=== PATIENT | male | born 1980 | race African-American/Black ===

== ENCOUNTER 2024-06-29 21:19 | Emergency (ER) | payer BC ==
[~2024-06-29] VITALS: Ht 172.7 cm; Wt 87.0 kg
[2024-06-29 21:29] VITALS: TEMP 98; O2SAT 100
[2024-06-30] MEDS ORDERED: CYCL10TA21 MT (03:32)
[2024-06-30] MEDS ORDERED: NAPR-1176 MT (03:32)
[2024-06-30 03:46] VITALS: O2SAT 100
[2024-06-30 03:48] VITALS: BP 120/85; PULSE 62; RESP 16
[2024-06-30] MEDS: KETOROLAC 30MG/ML VIAL IM ONE (03:48)
[2024-06-30] MEDS: CYCLOBENZAPRINE 10MG TABLET PO ONE (03:49)
== END 2024-06-30 03:55 | disposition home or self-care (01) ==
LOC: ER 21:19
DX: S10.93XA Contusion of unspecified part of neck, initial encounter (principal); M54.6 Pain in thoracic spine; W01.0XXA Fall on same level from slipping, tripping and stumbling without subsequent striking against object, initial encounter; Y93.89 Activity, other specified; Y92.89 Other specified places as the place of occurrence of the external cause; Y99.8 Other external cause status
CPT/HCPCS: 71045; 96372; 99285

== ENCOUNTER 2024-11-29 02:18 | Inpatient (IN) | payer BC ==
[~2024-11-29] VITALS: Ht 170.2 cm; Wt 84.8 kg
[~2024-11-29 02:18] MED LIST: CYCL10TA21 MT; NAPR-1176 MT
[2024-11-29 02:46] VITALS: O2SAT 98
[2024-11-29] MEDS ORDERED: CLINDAMYCIN 600 MG in DEXTROSE 5% WATER 50 ML IV ONE (03:45)
[2024-11-29 03:56] LABS: BASOPHILS % 0.4 % (0.0-2.0); EOSINOPHILS % 3.6 % (0.0-5.0); HEMATOCRIT. 35.3 % (42.0-52.0); HEMOGLOBIN. 12.2 g/dL (14.0-18.0); LYMPHOCYTES % 44.5 % (20.0-50.0); MEAN CORPUSCULAR HEMOGLOBIN 29.1 pg (28.0-32.0); MEAN CORPUSCULAR HGB CONC 34.6 g/dL (31.0-37.0); MEAN CORPUSCULAR VOLUME 84.1 fL (80.0-94.0); MEAN PLATELET VOLUME 8.3 fl (7.4-10.4); MONOCYTES % 13.5 % (2.0-8.0); PLATELET 253 x1000/uL (130-400); RED BLOOD CELL COUNT 4.19 mill/uL (4.7-6.1); RED CELL DISTRIBUTION WIDTH 14.2 % (11.6-14.6); WHITE BLOOD COUNT 8.7 x1000/uL (4.5-11.0)
[2024-11-29 04:03] LABS: CHLORIDE 107 mEq/L (98-107); POTASSIUM 3.6 mEq/L (3.5-5.1); SODIUM 139 mEq/L (136-145)
[2024-11-29 04:04] LABS: CARBON DIOXIDE 25 mEq/L (21-32)
[2024-11-29 04:09] LABS: CREATININE 1.5 mg/dL (0.6-1.3); GLUCOSE 121 mg/dL (70-105); UREA NITROGEN BLOOD 20 mg/dL (9-23)
[2024-11-29] MEDS: KETOROLAC 15MG/ML VIAL IM ONE (04:28)
[2024-11-29] MEDS ORDERED: CLINDAMYCIN 600MG PREMIX 50 ML IV NR (04:45)
[2024-11-29 06:43] VITALS: BP 120/74; PULSE 63; RESP 18; TEMP 36.7; O2SAT 99
[2024-11-29 08:00] VITALS: BP 117/81; PULSE 60; PULSE 68; RESP 19; TEMP 36.8; TEMP 36.9; O2SAT 99
[2024-11-29] MEDS ORDERED: DOCUSATE SODIUM 100MG CAPSULE PO PRN (09:00)
[2024-11-29] MEDS ORDERED: ACETAMINOPHEN 325MG TABLET PO PRN ×2 (09:00)
[2024-11-29] MEDS ORDERED: GUAIFENESIN 200MG/10ML SUGAR FREE UDC PO PRN (09:00)
[2024-11-29] MEDS ORDERED: LORAZEPAM 0.5MG TABLET PO PRN (09:00)
[2024-11-29] MEDS ORDERED: MAGNESIUM/ALUMINUM HYDROXIDE/SIMETHICONE 30ML UDC PO PRN (09:00)
[2024-11-29] MEDS ORDERED: CLONIDINE 0.1MG TABLET PO PRN (09:00)
[2024-11-29] MEDS ORDERED: IPRATROPIUM/ALBUTEROL 0.5-3(2.5)MG/3ML NEB HHN PRN (09:00)
[2024-11-29] MEDS ORDERED: DIPHENHYDRAMINE 50MG/ML VIAL IV PRN (09:00)
[2024-11-29] MEDS ORDERED: ONDANSETRON HCL 4MG/2ML INJ IV PRN (09:00)
[2024-11-29] MEDS ORDERED: NALOXONE HCL 0.4MG/ML VIAL IV PRN (09:45)
[2024-11-29] MEDS: MORPHINE SULFATE 2 MG/ML INJ (NOT FOR IM USE) IV PRN (09:53)
[2024-11-29] MEDS: DEXT 5%/0.45% NACL 1000ML 1,000 ML IV SCH (09:53)
[2024-11-29 12:00] VITALS: BP 116/76; PULSE 68; RESP 20; TEMP 36.5; O2SAT 100
[2024-11-29] MEDS: PIPERACILLIN/TAZO 3.375G/50ML 50 ML IV SCH (12:54)
[2024-11-29] MEDS: SODIUM CHLORIDE 0.9% 1,000 ML IV SCH (13:00)
[2024-11-29] MEDS ORDERED: IOHEXOL-300 100 ML BOTTLE ONE (13:50)
[2024-11-29] MEDS ORDERED: VANCOMYCIN 2GM PMX (XELLIA) 400 ML IV SCH (14:00)
[2024-11-29] MEDS: HYDROCODONE/ACETAMINOPHEN 5/325MG TABLET PO PRN (15:11)
[2024-11-29 15:43] LABS: BASOPHILS % 0.5 % (0.0-2.0); EOSINOPHILS % 4.1 % (0.0-5.0); HEMATOCRIT. 38.1 % (42.0-52.0); HEMOGLOBIN. 13.3 g/dL (14.0-18.0); LYMPHOCYTES % 50.2 % (20.0-50.0); MEAN CORPUSCULAR HEMOGLOBIN 29.3 pg (28.0-32.0); MEAN CORPUSCULAR HGB CONC 34.8 g/dL (31.0-37.0); MEAN CORPUSCULAR VOLUME 84.3 fL (80.0-94.0); MEAN PLATELET VOLUME 8.5 fl (7.4-10.4); MONOCYTES % 12.5 % (2.0-8.0); NEUTROPHILS % 32.7 % (40.0-76.0); PLATELET 261 x1000/uL (130-400); RED BLOOD CELL COUNT 4.52 mill/uL (4.7-6.1)
[2024-11-29 15:45] LABS: CHLORIDE 105 mEq/L (98-107); POTASSIUM 3.7 mEq/L (3.5-5.1); SODIUM 140 mEq/L (136-145)
[2024-11-29 15:46] LABS: CALCIUM 9.1 mg/dL (8.7-10.4); CARBON DIOXIDE 28 mEq/L (21-32)
[2024-11-29 15:51] LABS: CREATININE 1.4 mg/dL (0.6-1.3); GLUCOSE 113 mg/dL (70-105); UREA NITROGEN BLOOD 16 mg/dL (9-23)
[2024-11-29 15:53] LABS: ALANINE AMINOTRANSFERASE 36 IU/L (10-49); ALBUMIN 4.1 g/dL (3.2-4.8); ASPARTATE AMINOTRANSFERASE 33 IU/L (<34); BILIRUBIN DIRECT 0.1 mg/dL (<=3.0); BILIRUBIN TOTAL 0.4 mg/dL (0.1-1.0)
[2024-11-29 15:56] LABS: THYROID STIMULATING HORMONE 1.21 uIU/mL (0.55-4.78)
[2024-11-29 16:00] VITALS: BP 106/68; PULSE 20; RESP 20; TEMP 36.7; O2SAT 97
[2024-11-29 20:00] VITALS: BP 131/77; PULSE 56; RESP 18; TEMP 36.3; O2SAT 100
[2024-11-30] VITALS: BP 140/75; PULSE 52; RESP 18; TEMP 36.5; O2SAT 52
[2024-11-30 04:00] VITALS: BP 126/76; PULSE 64; RESP 18; TEMP 36.5; O2SAT 100
[2024-11-30 07:03] LABS: CARBON DIOXIDE 25 mEq/L (21-32); CHLORIDE 106 mEq/L (98-107); POTASSIUM 4.1 mEq/L (3.5-5.1); SODIUM 140 mEq/L (136-145)
[2024-11-30 07:04] LABS: CALCIUM 8.9 mg/dL (8.7-10.4)
[2024-11-30 07:05] LABS: BASOPHILS % 0.5 % (0.0-2.0); EOSINOPHILS % 5.3 % (0.0-5.0); HEMATOCRIT. 38.4 % (42.0-52.0); HEMOGLOBIN. 13.5 g/dL (14.0-18.0); LYMPHOCYTES % 46.4 % (20.0-50.0); MEAN CORPUSCULAR HEMOGLOBIN 29.4 pg (28.0-32.0); MEAN CORPUSCULAR HGB CONC 35.2 g/dL (31.0-37.0); MEAN CORPUSCULAR VOLUME 83.6 fL (80.0-94.0); MEAN PLATELET VOLUME 8.5 fl (7.4-10.4); NEUTROPHILS % 34.8 % (40.0-76.0); PLATELET 274 x1000/uL (130-400); RED BLOOD CELL COUNT 4.59 mill/uL (4.7-6.1); RED CELL DISTRIBUTION WIDTH 14.2 % (11.6-14.6); WHITE BLOOD COUNT 7.1 x1000/uL (4.5-11.0)
[2024-11-30 07:09] LABS: CREATININE 1.5 mg/dL (0.6-1.3); GLUCOSE 98 mg/dL (70-105); UREA NITROGEN BLOOD 14 mg/dL (9-23)
[2024-11-30 08:00] VITALS: BP 124/80; PULSE 56; RESP 20; TEMP 36.5; O2SAT 100
[2024-11-30] MEDS: VANCOMYCIN 750MG PMX (XELLIA) 150 ML IV SCH (09:03)
[2024-11-30 12:00] VITALS: BP 93/53; PULSE 64; RESP 20; TEMP 36.7; O2SAT 98
[2024-11-30 16:00] VITALS: BP 122/82; PULSE 58; RESP 18; TEMP 36.6; O2SAT 98
[2024-11-30] MEDS ORDERED: PHENYLEPHRINE HCL 10MG/ML 1ML IV ONE (17:32)
[2024-11-30] MEDS ORDERED: POLYMYXIN B SULFATE 500000 UNITS/VIAL ONE (17:40)
[2024-11-30] MEDS ORDERED: LIDOCAINE HCL 1% 10 MG/ML 10ML VIAL ONE (17:40)
[2024-11-30] MEDS ORDERED: METOCLOPRAMIDE HCL 10MG/2ML VIAL ONE (17:44)
[2024-11-30] MEDS ORDERED: ONDANSETRON HCL 4MG/2ML INJ ONE (17:44)
[2024-11-30] MEDS ORDERED: PROPOFOL 200MG/20ML VIAL IV ONE ×2 (17:45→18:48)
[2024-11-30] MEDS ORDERED: ONDANSETRON HCL 4MG/2ML INJ IV PRN (18:00)
[2024-11-30] MEDS ORDERED: HYDROMORPHONE HCL/PF 1MG/ML INJ IV PRN (18:00)
[2024-11-30] MEDS ORDERED: FENTANYL CITRATE/PF 50MCG/ML 2ML VIAL ONE (18:41)
[2024-11-30] MEDS ORDERED: MIDAZOLAM HCL 2 MG/2 ML VIAL ONE (18:42)
[2024-11-30] MEDS ORDERED: LIDOCAINE HCL 1% 20ML VIAL ONE (18:47)
[2024-11-30] MEDS ORDERED: ACETAMINOPHEN 1000MG/100ML 100 ML IV ONE (19:01)
[2024-11-30 20:53] VITALS: BP 148/93; PULSE 53; RESP 17; TEMP 36.2; O2SAT 97
[2024-12-01] VITALS: BP 127/86; PULSE 49; RESP 17; TEMP 36.3
[2024-12-01] MEDS: HYDROMORPHONE HCL/PF 2MG/ML INJ IV NR (02:27)
[2024-12-01 04:00] VITALS: BP 111/63; PULSE 55; RESP 18; TEMP 36.1
[2024-12-01] MEDS: HYDROCODONE/ACETAMINOPHEN 7.5/325MG TABLET PO PRN (05:15)
[2024-12-01 07:22] LABS: CARBON DIOXIDE 30 mEq/L (21-32); CHLORIDE 101 mEq/L (98-107); POTASSIUM 3.9 mEq/L (3.5-5.1); SODIUM 139 mEq/L (136-145)
[2024-12-01 07:23] LABS: CALCIUM 8.7 mg/dL (8.7-10.4)
[2024-12-01 07:28] LABS: CREATININE 1.4 mg/dL (0.6-1.3); GLUCOSE 102 mg/dL (70-105); UREA NITROGEN BLOOD 13 mg/dL (9-23)
[2024-12-01 08:00] VITALS: BP 111/70; PULSE 54; RESP 19; TEMP 36.3; O2SAT 100
[2024-12-01 08:02] LABS: BASOPHILS % 0.3 % (0.0-2.0); EOSINOPHILS % 3.2 % (0.0-5.0); HEMATOCRIT. 38.2 % (42.0-52.0); HEMOGLOBIN. 13.1 g/dL (14.0-18.0); LYMPHOCYTES % 41.6 % (20.0-50.0); MEAN CORPUSCULAR HGB CONC 34.4 g/dL (31.0-37.0); MEAN CORPUSCULAR VOLUME 84.2 fL (80.0-94.0); MEAN PLATELET VOLUME 8.4 fl (7.4-10.4); MONOCYTES % 9.6 % (2.0-8.0); NEUTROPHILS % 45.3 % (40.0-76.0); PLATELET 289 x1000/uL (130-400); RED BLOOD CELL COUNT 4.53 mill/uL (4.7-6.1); WHITE BLOOD COUNT 9.7 x1000/uL (4.5-11.0)
[2024-12-01 12:00] VITALS: BP 124/68; PULSE 62; RESP 20; TEMP 36.3; O2SAT 98
[2024-12-01] MEDS: HYDROMORPHONE HCL/PF 2MG/ML INJ IV PRN (14:36)
[2024-12-01 16:00] VITALS: BP 124/77; PULSE 54; RESP 19; TEMP 36.4; O2SAT 98
[2024-12-01 20:00] VITALS: BP 122/88; PULSE 79; RESP 16; TEMP 36.4; O2SAT 97
[2024-12-02 04:00] VITALS: BP 123/50; PULSE 62; RESP 16; TEMP 36.8; O2SAT 100
[2024-12-02 06:42] LABS: BASOPHILS % 0.3 % (0.0-2.0); EOSINOPHILS % 3.2 % (0.0-5.0); HEMOGLOBIN. 13.6 g/dL (14.0-18.0); LYMPHOCYTES % 40.3 % (20.0-50.0); MEAN CORPUSCULAR HEMOGLOBIN 29.1 pg (28.0-32.0); MEAN CORPUSCULAR VOLUME 83.3 fL (80.0-94.0); MEAN PLATELET VOLUME 8.3 fl (7.4-10.4); NEUTROPHILS % 47.2 % (40.0-76.0); PLATELET 317 x1000/uL (130-400); RED BLOOD CELL COUNT 4.68 mill/uL (4.7-6.1); RED CELL DISTRIBUTION WIDTH 14.5 % (11.6-14.6); WHITE BLOOD COUNT 8.9 x1000/uL (4.5-11.0)
[2024-12-02 06:52] LABS: CHLORIDE 102 mEq/L (98-107); POTASSIUM 4.2 mEq/L (3.5-5.1); SODIUM 140 mEq/L (136-145)
[2024-12-02 06:53] LABS: CALCIUM 9.2 mg/dL (8.7-10.4); CARBON DIOXIDE 31 mEq/L (21-32)
[2024-12-02 06:58] LABS: CREATININE 1.5 mg/dL (0.6-1.3); GLUCOSE 86 mg/dL (70-105); UREA NITROGEN BLOOD 14 mg/dL (9-23)
[2024-12-02 08:00] VITALS: BP 106/62; PULSE 70; RESP 17; TEMP 36.3; O2SAT 100
[2024-12-02 10:12] VITALS: BP 110/60; PULSE 75; RESP 18
[2024-12-02] MEDS: HYDROCODONE/ACETAMINOPHEN 7.5/325MG TABLET PO PRN (10:12)
== END 2024-12-02 10:30 | disposition left against medical advice (07) | DRG 717 ==
LOC: ER 02:18 → 7EST 05:08 → EDBEDREQTM 05:09 → EDBEDREQ 05:09 → ENRESERV 05:19
PROVIDERS: ADMIT Family Medicine Adult Medicine; ATTEND Family Medicine Adult Medicine
PROC: 0V950ZZ Drainage of Scrotum, Open Approach (ICD-10-PCS; principal; 2024-11-30)
PROC: 0VB50ZX Excision of Scrotum, Open Approach, Diagnostic (ICD-10-PCS; 2024-11-30)
DX: N49.2 Inflammatory disorders of scrotum (principal); B20 Human immunodeficiency virus [HIV] disease; L02.215 Cutaneous abscess of perineum; L02.214 Cutaneous abscess of groin; L03.314 Cellulitis of groin; Z53.29 Procedure and treatment not carried out because of patient's decision for other reasons; N49.3 Fournier gangrene
CPT/HCPCS: 36415; 71045; 74177; 76857; 80048; 80076; 80202; 84443; 85025; 87070; 87075; 87389; 88304; 99285; J1171; J1885; J2003; J2250; J2270; J2371; J2405; J2543; J2704; J2765; J3010; J3370; J3490; J7030; J7060; Q9967; J0131